=== PATIENT | female | born 1965 | race African-American/Black ===

== ENCOUNTER 2017-11-02 15:51 | Emergency (ER) | payer OTHER ==
[2017-11-02 16:03] VITALS: BP 117/77; PULSE 97; TEMP 98.5
[2017-11-02] MEDS ORDERED: DEXAMETHASONE SOD PHOSPHATE 10 MG/1 ML VIAL ONE (16:46)
[2017-11-02] MEDS ORDERED: PENICILLIN G BENZATHINE 2,400,000 UNIT/4 ML PFS ONE ×2 (16:47→16:49)
[2017-11-02] MEDS ORDERED: DEXAMETHASONE LIQUID 0.5 MG/5 ML 240 ML BULK BOTTLE PO ONE (16:50)
[2017-11-02] MEDS ORDERED: PENICILLIN G BENZATHINE 2,400,000 UNIT/4 ML PFS IM ONE (16:50)
--- NOTE | 2017-11-02 16:51 | PDOC ---
History of Present Illness - General Chief Complaint: Sore Throat Stated Complaint: PAIN/ HEAD, BACK Time Seen by Provider: 11/02/17 16:34 History Source: Patient - History of Present Illness Initial Comments: 11/02/17 16:46 This is a 52-year-old woman past medical history of diabetes and hypertension who presents emergency Department with 3 days of sore throat, raspy voice and fevers. 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 She states the children have been treated for strep throat. Patient also states she's been having a headache and feels dehydrated. Patient states she has to occasionally clear her throat and forcibly cough remove phlegm from her throat. She denies chills, chest pain, shortness of breath, abdominal pain, nausea or vomiting. 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 Past History - Past Medical History Allergies/Adverse Reactions: Allergies Allergy/AdvReac Type Severity Reaction Status Date / Time No Known Allergies Allergy Verified 11/02/17 16:02 Home Medications: Ambulatory Orders Metformin HCl [Metformin HCl ER] 1,000 mg PO DAILY 01/20/16 Azithromycin [Zithromax Tri-Otis (3 DAYS) -] 500 mg PO DAILY #3 tablet 10/22/16 Prednisone [Deltasone -] 40 mg PO DAILY #6 tablet 10/22/16 COPD: No Diabetes: Yes HTN: Yes - Suicide/Smoking/Psychosocial Hx Smoking History: Never smoked Have you smoked in the past 12 months: No Hx Alcohol Use: No Drug/Substance Use Hx: No Respiratory Specific PMHX - Complaint Specific PMHX Bronchitis: Yes Pneumonia: Yes Review of Systems - Review of Systems Is the patient limited Singaporean proficient: No Constitutional: No: Symptoms Reported HEENTM: Yes: See HPI Respiratory: No: Symptoms reported Cardiac (ROS): No: Symptoms Reported ABD/GI: No: Symptoms Reported : No: Symptoms Reported Musculoskeletal: No: Symptoms Reported Integumentary: No: Symptoms Reported Neurological: No: Symptoms reported *Physical Exam - Vital Signs Last Vital Signs Temp Pulse Resp BP Pulse Ox 98.5 F 97 H 18 117/77 96 11/02/17 15:59 11/02/17 15:59 11/02/17 15:59 11/02/17 15:59 11/02/17 15:59 - Physical Exam General Appearance: Yes: Appropriately Dressed. No: Apparent Distress HEENT: positive: TMs Normal, Pharyngeal Erythema, Tonsillar Exudate, Tonsillar Erythema Neck: positive: Trachea midline, Supple Respiratory/Chest: positive: Lungs Clear, Normal Breath Sounds. negative: Respiratory Distress, Accessory Muscle Use Cardiovascular: positive: Regular Rhythm, Regular Rate. negative: Edema, Murmur Gastrointestinal/Abdominal: positive: Normal Bowel Sounds, Soft. negative: Tender Musculoskeletal: positive: Normal Inspection. 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 She states the children have been treated for strep throat. Patient also states she's been having a headache and feels dehydrated. Patient states she has to occasionally clear her throat and forcibly cough remove phlegm from her throat. She denies chills, chest pain, shortness of breath, abdominal pain, nausea or vomiting. TMs pearly bolivar with appropriate light reflex. Evaluation of the oropharynx reveals +4 tonsils with erythema and exudate. Patient with hoarse voice. Patient has anterior cervical lymphadenopathy bilaterally. Lungs clear to auscultation bilaterally. There is no stridor. Abdomen soft nontender nondistended. Diagnosis: Pharyngitis Given multiple exposures to children that are positive for streptococcal bacteria I will treat the patient hasn't this is bacterial in nature. Patient also instructed how to treat a viral illness. *DC/Admit/Observation/Transfer Diagnosis at time of Disposition: Pharyngitis Qualifiers: Pharyngitis/tonsillitis etiology: unspecified etiology Qualified Code(s): J02.9 - Acute pharyngitis, unspecified - Discharge Dispostion Disposition: HOME Condition at time of disposition: Stable Admit: No - Referrals Referrals: Vinh Ceja MD [Primary Care Provider] - - Patient Instructions Additional Instructions: Change her toothbrush immediately. Saltwater gargles may help alleviate feeling in her throat. Take Tylenol or Motrin as needed for fevers and pain. Follow manufacturers instructions for appropriate dosage. Keep well-hydrated. Return to emergency department for difficulty swallowing, drooling, worsening fevers,'s worsening sore throat, or any other concerns. Thank you very much for choosing us to provide your emergent healthcare needs. - Post Discharge Activity
== END 2017-11-02 17:05 | disposition home or self-care (01) ==
LOC: JERFT 15:51
DX: J02.9 Acute pharyngitis, unspecified (principal); I10 Essential (primary) hypertension; E11.9 Type 2 diabetes mellitus without complications; Z79.84 Long term (current) use of oral hypoglycemic drugs
CPT/HCPCS: 99281-25

== ENCOUNTER 2018-11-04 17:33 | Inpatient (IN) | payer OTHER ==
--- NOTE | 2018-11-04 18:03 | PDOC ---
Rapid Medical Evaluation Time Seen by Provider: 11/04/18 17:59 Medical Evaluation: Allergies Allergy/AdvReac Type Severity Reaction Status Date / Time No Known Allergies Allergy Verified 11/02/17 16:02 11/04/18 18:01 I have performed a brief in-person evaluation of this patient. The patient presents with a chief complaint of: sent by PMD for admission for cellulitis Pertinent physical exam findings: right 5th digit cellulitis with lymphangitis I have ordered the following: labs The patient will proceed to the ED for further evaluation. Discharge Disposition - Diagnosis Cellulitis - Referrals - Patient Instructions - Post Discharge Activity
[2018-11-04 18:04] VITALS: BMI 35.6
[2018-11-04 19:28] LABS: BASO % 0.6 % (0-2.0); EOS % 1.8 % (0-4.5); HEMATOCRIT 40.1 % (32.4-45.2); HEMOGLOBIN 14.3 GM/dL (10.7-15.3); LYMPH % 46.2 % (8-40); MCHC 35.7 g/dl (32.0-36.0); MEAN CELL VOLUME 89.6 fl (80-96); MEAN PLT VOLUME 8.7 fl (7.5-11.1); MONO % 9.7 % (3.8-10.2); NEUT % 41.7 % (42.8-82.8); PLATELET COUNT 251 K/MM3 (134-434); RBC 4.48 M/mm3 (3.60-5.2); RDW 13.9 % (11.6-15.6); WHITE BLOOD COUNT 9.6 K/mm3 (4.0-10.0)
[2018-11-04 19:49] LABS: ANION GAP 7 MMOL/L (8-16); BLOOD UREA NITROGEN 9 mg/dL (7-18); CALCIUM 9.5 mg/dL (8.5-10.1); CHLORIDE 105 mmol/L (98-107); CO2 26 mmol/L (21-32); CREATININE 0.7 mg/dL (0.55-1.3); GLUCOSE,RANDOM 125 mg/dL (74-106); POTASSIUM 3.6 mmol/L (3.5-5.1); SODIUM 138 mmol/L (136-145)
[2018-11-04] MEDS ORDERED: diphenhydrAMINE HCL 25 MG CAPSULE (FP) PO ONE ×2 (20:58→21:12)
[2018-11-04] MEDS ORDERED: CLINDAMYCIN 600MG PREMIX IVPB 600 MG/50 ML BAG IVPB ONE ×2 (20:58→21:12)
[2018-11-04] MEDS ORDERED: IBUPROFEN 400 MG TABLET (FP) PO ONE (20:58)
--- NOTE | 2018-11-04 21:09 | PDOC ---
History of Present Illness - General Chief Complaint: Edema Stated Complaint: ROOM 12A Time Seen by Provider: 11/04/18 17:59 History Source: Patient Exam Limitations: No Limitations Past History - Past Medical History Allergies/Adverse Reactions: Allergies Allergy/AdvReac Type Severity Reaction Status Date / Time No Known Allergies Allergy Verified 11/02/17 16:02 Home Medications: Ambulatory Orders Metformin HCl [Metformin HCl ER] 1,000 mg PO DAILY 01/20/16 Azithromycin [Zithromax Tri-Otis (3 DAYS) -] 500 mg PO DAILY #3 tablet 10/22/16 predniSONE [Deltasone -] 40 mg PO DAILY #6 tablet 10/22/16 COPD: No Diabetes: Yes HTN: Yes - Immunization History Immunization Up to Date: Yes - Suicide/Smoking/Psychosocial Hx Smoking History: Never smoked Have you smoked in the past 12 months: No Hx Alcohol Use: No Drug/Substance Use Hx: No *Physical Exam - Vital Signs Last Vital Signs Temp Pulse Resp BP Pulse Ox 97.7 F 79 16 154/79 96 11/04/18 18:01 11/04/18 18:01 11/04/18 18:01 11/04/18 18:01 11/04/18 18:01 - Physical Exam General Appearance: No: Apparent Distress Extremity: positive: Other (+erythema and mild edema along lateral surface of R pinky along with streaking noted; no evidence of trauma or bite noted) Integumentary: positive: Erythema. negative: Cold, Clammy, Rash, Ecchymosis Moderate Sedation - Procedure Monitoring Vital Signs: Procedure Monitoring Vital Signs Temperature 97.7 F 11/04/18 18:01 Pulse Rate 79 11/04/18 18:01 Respiratory Rate 16 11/04/18 18:01 Blood Pressure 154/79 11/04/18 18:01 O2 Sat by Pulse Oximetry (%) 96 11/04/18 18:01 ED Treatment Course - LABORATORY CBC & Chemistry Diagram: 11/04/18 19:20 11/04/18 19:20 - ADDITIONAL ORDERS Additional order review: Laboratory Results 11/04/18 19:20 Sodium 138 Potassium 3.6 Chloride 105 Carbon Dioxide 26 Anion Gap 7 L BUN 9 Creatinine 0.7 Creat Clearance w eGFR > 60 Random Glucose 125 H Calcium 9.5 11/04/18 19:20 RBC 4.48 MCV 89.6 MCHC 35.7 RDW 13.9 MPV 8.7 Neutrophils % 41.7 L Lymphocytes % 46.2 H Monocytes % 9.7 Eosinophils % 1.8 Basophils % 0.6 Medical Decision Making - Medical Decision Making 53 y/o F hx of HTN, DM presents with mild swelling along R pinky last night and then redness with streaking today. Patient was recently stated on Keflex 2 days ago by her PCP for UTI. Otherwise, denies any trauma to site; unsure of anything may have bit her finger. Mentions site is itchy. Went to UC today to get evaluated and was sent to ED for IV abx. Denies fever, sob, cp, abd pain, n/ v PE concerning for lymphangitis Patient given Motrin, Benadryl and Clindamycin Blood cultures were sent Will admit for further care 11/04/18 21:[address] Castaneda - patient admitted for further care 11/04/18 23:02 *DC/Admit/Observation/Transfer Diagnosis at time of Disposition: Lymphangitis - Discharge Dispostion Condition at time of disposition: Good Decision to Admit order: Yes - Referrals Referrals: Vinh Ceja MD [Primary Care Provider] - - Patient Instructions - Post Discharge Activity
[2018-11-04 21:41] LABS: URINE APPEARANCE CLEAR; URINE BILIRUBIN NEGATIVE (<2.0 mg/dL); URINE COLOR STRAW; URINE GLUCOSE (UA) NEGATIVE (NEGATIVE); URINE KETONE NEGATIVE (NEGATIVE); URINE LEUK ESTERASE 2+ (NEGATIVE); URINE NITRITE NEGATIVE (NEGATIVE); URINE PROTEIN NEGATIVE (NEGATIVE); URINE UROBILINOGEN NEGATIVE mg/dL (0.2-1.0)
[2018-11-04 22:04] LABS: EPI CELLS RARE /HPF (FEW); URINE MUCUS RARE
[2018-11-05] MEDS ORDERED: diphenhydrAMINE HCL 25 MG CAPSULE (FP) PO ONE (02:35)
[2018-11-05] MEDS ORDERED: PT OWN MED DRAWER 7, Y5N ONE ×4 (06:12→16:37)
[2018-11-05] MEDS: CLINDAMYCIN 600MG PREMIX IVPB 600 MG/50 ML BAG IVPB SCH ×2 (06:44→13:20)
[2018-11-05] MEDS: INSULIN SLIDING SCALE (NOVOLOG) 1 VIAL SQ SCH ×4 (06:44→21:35)
[2018-11-05] MEDS: HEPARIN NA (PORCINE) 5,000 UNITS/ML 1ML VIAL SQ SCH ×2 (10:01→21:34)
[2018-11-05] MEDS: diphenhydrAMINE HCL 25 MG CAPSULE (FP) PO PRN ×2 (13:18→21:37)
--- NOTE | 2018-11-05 15:00 | CON.ID ---
Consult Consult Specialty:: infectious disease Referred by:: Reason for Consultation:: cellulitis of the finger with lymphangitic spread - History of Present Illness Chief Complaint: pain and swelling of the finger ansd streaking at the medial side of the arm till the axilla History of Present Illness: 53 y/o F hx of HTN, DM presents with swelling along R pinky which then lead to redness with streaking . Patient was recently on Keflex for 2 days P for UTI. Otherwise, denies any trauma to site; unsure of anything may have bit her finger. Mentions site is itchy. Went to today to get evaluated and was sent to ED for IV abx. Denies fever, sob, cp, abd pain, n/v patient was admitted and started on iv abx clinda - History Source History Provided By: Patient Limitations to Obtaining History: No Limitations - Alcohol/Substance Use Hx Alcohol Use: No - Smoking History Smoking history: Never smoked Have you smoked in the past 12 months: No Home Medications - Allergies Allergies/Adverse Reactions: Allergies Allergy/AdvReac Type Severity Reaction Status Date / Time No Known Allergies Allergy Verified 11/02/17 16:02 - Home Medications Home Medications: Ambulatory Orders Unobtainable 11/05/18 Review of Systems - Review of Systems Constitutional: reports: No Symptoms Eyes: reports: No Symptoms HENT: reports: No Symptoms Neck: reports: No Symptoms Cardiovascular: reports: No Symptoms Respiratory: reports: No Symptoms Gastrointestinal: reports: No Symptoms Genitourinary: reports: No Symptoms Musculoskeletal: reports: Muscle Pain Integumentary: reports: Erythema, Other (streaking on the arm till the axilla) Neurological: reports: No Symptoms Endocrine: reports: No Symptoms Hematology/Lymphatic: reports: No Symptoms Psychiatric: reports: No Symptoms Physical Exam Vital Signs: Vital Signs Temperature 98.9 F 11/05/18 14:12 Pulse Rate 80 11/05/18 14:12 Respiratory Rate 20 11/05/18 06:26 Blood Pressure 133/55 L 11/05/18 14:12 O2 Sat by Pulse Oximetry (%) 98 11/05/18 09:00 Constitutional: Yes: Well Nourished, Calm Eyes: Yes: Conjunctiva Clear HENT: Yes: Atraumatic, Normocephalic Neck: Yes: Supple, Trachea Midline Cardiovascular: Yes: Regular Rate and Rhythm Respiratory: Yes: Regular, CTA Bilaterally Gastrointestinal: Yes: Normal Bowel Sounds, Soft Musculoskeletal: Yes: WNL Extremities: Yes: Other (rt pinky finger cellulitis) Integumentary: Yes: Erythema, Other (streaking of the rt side of the hand) Neurological: Yes: Alert, Oriented Psychiatric: Yes: Alert, Oriented Labs: CBC, BMP 11/04/18 19:20 11/04/18 19:20 Assessment/Plan cellulitis of the finger little erythema lymphangitis pain plan will change clinda to oral abx will add unasyn monitor swelling and streaking rest as per the team
[2018-11-05] MEDS: AMPICILLIN NA/SULBACTAM NA 3 GM in SODIUM CHLORIDE 100 ML IVPB SCH ×2 (16:41→17:47)
[2018-11-05] MEDS ORDERED: INSULIN (NOVOLOG) ASPART 100 UNITS/ML 10ML VIAL ONE (16:56)
[2018-11-05] MEDS: CLINDAMYCIN HCL 150 MG CAPSULE (FP) PO SCH (17:49)
[2018-11-05] MEDS ORDERED: FLUCONAZOLE 150 MG TABLET PO ONE (20:14)
--- NOTE | 2018-11-05 20:14 | HP ---
Admitting History and Physical - Admission History of Present Illness: Pt is a 53 y/o F hx of HTN, DM presents with mild swelling along R pinky last night and then redness with streaking today. Patient was recently stated on Keflex 2 days ago by her PCP for UTI. Otherwise, denies any trauma to site; unsure of anything may have bit her finger. Mentions site is itchy. Went to today to get evaluated and was sent to ED for IV abx. Denies fever, sob, cp, abd pain, n/v - Past Medical History Cardiovascular: Yes: HTN Endocrine: Yes: Diabetes Mellitus - Smoking History Smoking history: Never smoked Have you smoked in the past 12 months: No - Alcohol/Substance Use Hx Alcohol Use: No Home Medications - Allergies Allergies/Adverse Reactions: Allergies Allergy/AdvReac Type Severity Reaction Status Date / Time No Known Allergies Allergy Verified 11/02/17 16:02 - Home Medications Home Medications: Ambulatory Orders Clindamycin [Cleocin -] 300 mg PO Q6HPO #40 capsule 11/07/18 Family Disease History - Family Disease History Family History: Unremarkable Review of Systems - Review of Systems Constitutional: reports: No Symptoms Eyes: reports: No Symptoms HENT: reports: No Symptoms Neck: reports: No Symptoms Cardiovascular: reports: No Symptoms Respiratory: reports: No Symptoms Gastrointestinal: reports: No Symptoms Physical Examination Vital Signs: Vital Signs Temperature 97.5 F L 11/05/18 19:51 Pulse Rate 79 11/05/18 19:51 Respiratory Rate 18 11/05/18 19:51 Blood Pressure 138/85 11/05/18 19:51 O2 Sat by Pulse Oximetry (%) 98 11/05/18 09:00 Constitutional: Yes: Well Nourished HENT: Yes: WNL Neck: Yes: WNL, Supple Cardiovascular: Yes: WNL, Regular Rate and Rhythm Respiratory: Yes: WNL, Regular, CTA Bilaterally Gastrointestinal: Yes: WNL, Normal Bowel Sounds, Soft Extremities: Yes: Other (Rt 5th finger w/ erythema and streaking to wrist) Labs: CBC, BMP 11/04/18 19:20 11/04/18 19:20 Problem List - Problems (1) Cellulitis Assessment/Plan: Cont IV antibx Follow blood cultures ID consult Code(s): L03.90 - CELLULITIS, UNSPECIFIED (2) Diabetes Assessment/Plan: Cont metformin Code(s): E11.9 - TYPE 2 DIABETES MELLITUS WITHOUT COMPLICATIONS (3) Lymphangitis Code(s): I89.1 - LYMPHANGITIS
[2018-11-05] MEDS ORDERED: FLUCONAZOLE 100 MG TABLET (UD) PO ONE (21:00)
[2018-11-05] MEDS: POLYETHYLENE GLYCOL 3350 119 GM BTL PO SCH (21:33)
[2018-11-06] MEDS: CLINDAMYCIN HCL 150 MG CAPSULE (FP) PO SCH ×4 (00:38→17:54)
[2018-11-06] MEDS ORDERED: PT OWN MED DRAWER 7, Y5N ONE ×4 (02:07→17:52)
[2018-11-06] MEDS: AMPICILLIN NA/SULBACTAM NA 3 GM in SODIUM CHLORIDE 100 ML IVPB SCH ×3 (02:15→17:54)
[2018-11-06] MEDS ORDERED: INSULIN (NOVOLOG) ASPART 100 UNITS/ML 10ML VIAL ONE ×2 (07:48→21:14)
[2018-11-06] MEDS: INSULIN SLIDING SCALE (NOVOLOG) 1 VIAL SQ SCH ×4 (07:51→21:58)
[2018-11-06 08:20] LABS: BASO % 0.5 % (0-2.0); EOS % 2.4 % (0-4.5); HEMATOCRIT 39.9 % (32.4-45.2); HEMOGLOBIN 13.3 GM/dL (10.7-15.3); LYMPH % 51.3 % (8-40); MCH 30.2 pg (25.7-33.7); MCHC 33.2 g/dl (32.0-36.0); MEAN CELL VOLUME 91.1 fl (80-96); MEAN PLT VOLUME 8.7 fl (7.5-11.1); MONO % 10.6 % (3.8-10.2); NEUT % 35.2 % (42.8-82.8); PLATELET COUNT 204 K/MM3 (134-434); RBC 4.38 M/mm3 (3.60-5.2); WHITE BLOOD COUNT 7.4 K/mm3 (4.0-10.0)
[2018-11-06] MEDS: POLYETHYLENE GLYCOL 3350 119 GM BTL PO SCH (09:10)
[2018-11-06] MEDS: diphenhydrAMINE HCL 25 MG CAPSULE (FP) PO PRN ×2 (09:11→20:13)
[2018-11-06] MEDS: HEPARIN NA (PORCINE) 5,000 UNITS/ML 1ML VIAL SQ SCH ×2 (09:11→21:58)
[2018-11-06 10:57] LABS: ALBUMIN 3.1 g/dl (3.4-5.0); ALK PHOS 103 U/L (45-117); ANION GAP 7 MMOL/L (8-16); BILIRUBIN,TOTAL 0.4 mg/dL (0.2-1); BLOOD UREA NITROGEN 9 mg/dL (7-18); CALCIUM 8.7 mg/dL (8.5-10.1); CHLORIDE 108 mmol/L (98-107); CO2 26 mmol/L (21-32); CREATININE 0.7 mg/dL (0.55-1.3); GLUCOSE,RANDOM 140 mg/dL (74-106); POTASSIUM 3.9 mmol/L (3.5-5.1); SGOT/AST 18 U/L (15-37); SGPT/ALT 36 U/L (13-61); SODIUM 140 mmol/L (136-145); TOT PROT 9.1 g/dl (6.4-8.2)
--- NOTE | 2018-11-06 12:15 | PN ---
Progress Note, Physician History of Present Illness: patients swelling has improved redness has improved streaking resolved patient still has some pain and sensitivity at the site - Current Medication List Current Medications: Active Medications Clindamycin HCl (Cleocin -) 300 mg PO Q6HPO [facility] Last Admin: 11/06/18 06:37 Dose: 300 mg Diphenhydramine HCl (Benadryl -) 25 mg PO Q6H PRN PRN Reason: FOR ITCHING Last Admin: 11/06/18 09:11 Dose: 25 mg Heparin Sodium (Porcine) (Heparin -) 5,000 unit SQ BID [facility] Last Admin: 11/06/18 09:11 Dose: 5,000 unit Ampicillin Sodium/Sulbactam (Sodium 3 gm/ Sodium Chloride) 100 mls @ 200 mls/ hr IVPB Q8H-IV [facility] Last Admin: 11/06/18 09:33 Dose: 200 mls/hr Insulin Aspart (Novolog Vial Sliding Scale -) 1 vial SQ ACHS [facility]; Protocol Last Admin: 11/06/18 12:03 Dose: Not Given Metformin HCl (Glucophage Xr -) 1,000 mg PO DAILY@0700 [facility] Last Admin: 11/06/18 06:37 Dose: 1,000 mg Polyethylene Glycol (Miralax (For Daily Use) -) 17 gm PO DAILY [facility] Last Admin: 11/06/18 09:10 Dose: Not Given - Objective Vital Signs: Vital Signs Temperature 97.9 F 11/06/18 05:00 Pulse Rate 75 11/06/18 05:00 Respiratory Rate 18 11/05/18 21:00 Blood Pressure 120/73 11/06/18 05:00 O2 Sat by Pulse Oximetry (%) 99 11/05/18 21:00 Constitutional: Yes: No Distress, Calm Cardiovascular: Yes: Regular Rate and Rhythm Respiratory: Yes: Regular, CTA Bilaterally Gastrointestinal: Yes: Normal Bowel Sounds, Soft Musculoskeletal: Yes: WNL Extremities: Yes: Other (little finger with erythema and swelling) Neurological: Yes: Alert, Oriented Psychiatric: Yes: Alert, Oriented Labs: CBC, BMP 11/06/18 07:30 11/06/18 07:30 Assessment/Plan cellulitis of the finger little erythema lymphangitis pain plan continue current abx rest as per the team will switch to oral tomorrow if the finger looks good monitor for worsening
[2018-11-06 15:35] VITALS: BP 140/80; PULSE 77; TEMP 98
--- NOTE | 2018-11-06 19:29 | PN ---
Progress Note, Physician History of Present Illness: No new complaints - Current Medication List Current Medications: Active Medications Clindamycin HCl (Cleocin -) 300 mg PO Q6HPO [facility] Last Admin: 11/06/18 17:54 Dose: 300 mg Diphenhydramine HCl (Benadryl -) 25 mg PO Q6H PRN PRN Reason: FOR ITCHING Last Admin: 11/06/18 09:11 Dose: 25 mg Heparin Sodium (Porcine) (Heparin -) 5,000 unit SQ BID [facility] Last Admin: 11/06/18 09:11 Dose: 5,000 unit Ampicillin Sodium/Sulbactam (Sodium 3 gm/ Sodium Chloride) 100 mls @ 200 mls/ hr IVPB Q8H-IV [facility] Last Admin: 11/06/18 17:54 Dose: 200 mls/hr Insulin Aspart (Novolog Vial Sliding Scale -) 1 vial SQ ACHS [facility]; Protocol Last Admin: 11/06/18 16:59 Dose: Not Given Metformin HCl (Glucophage Xr -) 1,000 mg PO DAILY@0700 [facility] Last Admin: 11/06/18 06:37 Dose: 1,000 mg Polyethylene Glycol (Miralax (For Daily Use) -) 17 gm PO DAILY [facility] Last Admin: 11/06/18 09:10 Dose: Not Given - Objective Vital Signs: Vital Signs Temperature 98.0 F 11/06/18 15:34 Pulse Rate 77 11/06/18 15:34 Respiratory Rate 18 11/06/18 15:34 Blood Pressure 140/80 11/06/18 15:34 O2 Sat by Pulse Oximetry (%) 99 11/05/18 21:00 Constitutional: Yes: Well Nourished Neck: Yes: WNL, Supple Cardiovascular: Yes: WNL, Regular Rate and Rhythm Respiratory: Yes: WNL, Regular, CTA Bilaterally Extremities: Yes: Other ((+) erythema Rt 5th finger) Labs: CBC, BMP 11/06/18 07:30 11/06/18 07:30 Problem List - Problems (1) Cellulitis Assessment/Plan: Cont IV antibx Possible change to PO antibxs in am Blood cultures remain negative Code(s): L03.90 - CELLULITIS, UNSPECIFIED (2) Diabetes Assessment/Plan: Cont metformin Code(s): E11.9 - TYPE 2 DIABETES MELLITUS WITHOUT COMPLICATIONS
[2018-11-07] MEDS: CLINDAMYCIN HCL 150 MG CAPSULE (FP) PO SCH ×3 (00:16→11:09)
[2018-11-07] MEDS: AMPICILLIN NA/SULBACTAM NA 3 GM in SODIUM CHLORIDE 100 ML IVPB SCH ×2 (02:49→10:18)
[2018-11-07] MEDS ORDERED: PT OWN MED DRAWER 7, Y5N ONE (06:12)
[2018-11-07] MEDS: INSULIN SLIDING SCALE (NOVOLOG) 1 VIAL SQ SCH ×2 (06:37→11:13)
[2018-11-07] MEDS: HEPARIN NA (PORCINE) 5,000 UNITS/ML 1ML VIAL SQ SCH (10:18)
[2018-11-07] MEDS: POLYETHYLENE GLYCOL 3350 119 GM BTL PO SCH (10:18)
[2018-11-07] MEDS ORDERED: INSULIN (NOVOLOG) ASPART 100 UNITS/ML 10ML VIAL ONE (11:11)
== END 2018-11-07 14:57 | disposition home or self-care (01) | DRG 603 ==
LOC: JER 17:33 → JERBED 23:03 → OBSVTOIN 11-05 01:51 → J6S 11-05 03:30
PROVIDERS: ADMIT Internal Medicine; ATTEND Internal Medicine
DX: L03.011 Cellulitis of right finger (principal); E11.9 Type 2 diabetes mellitus without complications; Z79.84 Long term (current) use of oral hypoglycemic drugs; I10 Essential (primary) hypertension
CPT/HCPCS: 36415; 80048; 80053; 81003; 81015; 82962; 83605; 85025; 87040; 87086; 99283-25; G0378; J1644

== ENCOUNTER 2019-04-09 10:46 | Emergency (ER) | payer OTHER | END 2019-04-09 12:09 | disposition home or self-care (01) | LOC: JERFT 10:46 ==

== ENCOUNTER 2019-06-05 12:40 | Emergency (ER) | payer OTHER | END 2019-06-05 14:15 | disposition home or self-care (01) | LOC: JERFT 12:40 ==

== ENCOUNTER 2019-09-19 13:57 | Emergency (ER) | payer OTHER ==
[2019-09-19 14:10] VITALS: BP 154/79; PULSE 96; TEMP 98.1; BMI 35.3
[2019-09-19] MEDS ORDERED: KETOROLAC TROMETHAMINE 60 MG/2 ML VIAL IM ONE (14:16)
--- NOTE | 2019-09-19 14:20 | PDOC ---
History of Present Illness - General Chief Complaint: Cold Symptoms Stated Complaint: LOWER BACK PAIN/HEADACHE/CONJESTED Time Seen by Provider: 09/19/19 14:09 History Source: Patient Exam Limitations: No Limitations - History of Present Illness Is this a multiple visit Asthma Patient?: No Associated Symptoms: reports: cough, headache, muscle aches. denies: chest pain /soreness, dizziness, earache, facial pain, fever/chills, lightheadedness, nasal congestion, nasal drainage, shortness of breath, sinus infection, sore throat, wheezing Past History - Travel Traveled outside of the country in the last 30 days: No Close contact w/someone who was outside of country & ill: No - Past Medical History Allergies/Adverse Reactions: Allergies Allergy/AdvReac Type Severity Reaction Status Date / Time No Known Allergies Allergy Verified 09/19/19 14:00 Home Medications: Ambulatory Orders Amlodipine Besylate 5 mg PO DAILY 06/05/19 Aspirin [ASA -] 81 mg PO DAILY 06/05/19 Cephalexin [Keflex] 500 mg PO TID #15 capsule 06/05/19 Linagliptin [Tradjenta] 5 mg PO DAILY 06/05/19 Losartan Potassium 25 mg PO DAILY 06/05/19 Metformin HCl [Glucophage] 1,000 mg PO BID 06/05/19 Mupirocin Cream [Bactroban 2% Cream -] 1 applic TP BID #1 tube 06/05/19 Amox-Tr/K Cl [Augmentin - 875Mg Tablet] 1 tab PO BID #14 tablet 09/19/19 Fluticasone Prop 0.05% Nasal [Flonase -] 1 spray NS DAILY 7 Days #1 bot Ibuprofen 600 mg PO ACDIN 7 Days #30 tablet 09/19/19 COPD: No Diabetes: Yes (NIDDM) HTN: Yes - Immunization History Immunization Up to Date: Yes - Psycho Social/Smoking Cessation Hx Smoking History: Never smoked Have you smoked in the past 12 months: No Hx Alcohol Use: No Drug/Substance Use Hx: No Respiratory Specific PMHX - Complaint Specific PMHX Hx Bronchitis: Yes Hx Pneumonia: Yes Review of Systems - Review of Systems Constitutional: No: Chills, Fever HEENTM: Yes: Nose Congestion, Other (facial pain). No: Throat Pain, Throat Swelling Respiratory: Yes: Cough. No: Shortness of Breath, Wheezing, Productive cough Cardiac (ROS): No: Chest Pain, Lightheadedness, Chest Tightness ABD/GI: No: Nausea, Vomiting Musculoskeletal: Yes: Muscle Pain. No: Muscle Weakness Neurological: Yes: Headache. No: Numbness, Tingling, Tremors, Weakness, Dizziness *Physical Exam - Vital Signs Last Vital Signs Temp Pulse Resp BP Pulse Ox 98.1 F 96 H 20 154/79 100 09/19/19 14:00 09/19/19 14:00 09/19/19 14:00 09/19/19 14:00 09/19/19 14:00 - Physical Exam General Appearance: Yes: Nourished HEENT: positive: EOMI, JACINTA, TMs Normal, Pharynx Normal, Sinus Tenderness ( frontal sinus pain) Neck: positive: Supple Respiratory/Chest: positive: Lungs Clear, Normal Breath Sounds Cardiovascular: positive: Regular Rhythm, Regular Rate, S1, S2 Gastrointestinal/Abdominal: positive: Normal Bowel Sounds, Soft Musculoskeletal: positive: Normal Inspection, CVA Tenderness Extremity: positive: Normal Capillary Refill, Normal Inspection Integumentary: positive: Normal Color 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 Patient denies any nausea vomiting blurred vision chest pain or shortness of breath. She is a non-smoker sinus tenderness on exam cxr to r/o PNA influenza and cxr neg for fx 09/19/19 14:55 Discharge - Discharge Information Problems reviewed: Yes Clinical Impression/Diagnosis: Viral syndrome Sinusitis Qualifiers: Sinusitis location: frontal Chronicity: acute Recurrence: non-recurrent Qualified Code(s): J01.10 - Acute frontal sinusitis, unspecified Condition: Stable Disposition: HOME - Additional Discharge Information Prescriptions: Amox-Tr/K Cl [Augmentin - 875Mg Tablet] 1 tab PO BID #14 tablet Fluticasone Prop 0.05% Nasal [Flonase -] 1 spray NS DAILY 7 Days #1 bot Ibuprofen 600 mg PO ACDIN 7 Days #30 tablet Prescription Drug Monitoring Program (I-STOP) results: I-STOP not reviewed - Follow up/Referral Referrals: Vinh Ceja MD [Primary Care Provider] - - Patient Discharge Instructions Patient Printed Discharge Instructions: DI for Sinusitis, DI for Viral Upper Respiratory Infection -- Adult Additional Instructions: Your flu test was negative today Your x-ray was negative for acute infection in your lungs you will be treated for sinusitis please take antibiotics as prescribed Follow-up with your primary care doctor Return to the emergency room if worsening symptoms occurs - Post Discharge Activity
[2019-09-19] MEDS ORDERED: KETOROLAC TROMETHAMINE 60 MG/2 ML VIAL ONE (14:25)
== END 2019-09-19 15:00 | disposition home or self-care (01) ==
LOC: JER 13:57 → JERFT 13:57
PROC: 3E0233Z Introduction of Anti-inflammatory into Muscle, Percutaneous Approach (ICD-10-PCS; principal; 2019-09-19)
DX: J01.10 Acute frontal sinusitis, unspecified (principal); B34.9 Viral infection, unspecified; I10 Essential (primary) hypertension; E11.9 Type 2 diabetes mellitus without complications; Z79.84 Long term (current) use of oral hypoglycemic drugs; Z79.82 Long term (current) use of aspirin
CPT/HCPCS: 71046-TC-FY; 87804; 99282-25

== ENCOUNTER 2019-11-26 04:53 | Day surgery (SDC) | payer OTHER ==
[2019-11-25 12:57] VITALS: BMI 35.3
--- NOTE | 2019-11-26 12:52 | HP ---
History & Physical Update - History History: No Change - Physical Physical: No Change - Assessment Assessment: No Change - Plan Plan: No Change (H & P done on 11/05/2019 with progress note on 11/25/2019)
--- NOTE | 2019-11-26 13:04 | OP ---
Operative Note - Note: Operative Date: 11/26/19 Pre-Operative Diagnosis: right arm mass Operation: Excision biopsy of right arm mass Findings: r/o 1 cm lymph node Post-Operative Diagnosis: Same as Pre-op Surgeon: Vance Blount Anesthesiologist/CLAIM REVIEW MEDICAL DIRECTOR: Astrid Jacobo Anesthesia: Local, MAC Specimens Removed: r/o lymph node Estimated Blood Loss (mls): 1 Operative Report Dictated: Yes
[2019-11-26] MEDS ORDERED: LIDOCAINE HCL 1%, 10 MG/ML (20ML VIAL) ONE (13:05)
[2019-11-26] MEDS ORDERED: MIDAZOLAM HCL 2 MG/2 ML SINGLE DOSE VIAL ONE (13:14)
[2019-11-26] MEDS ORDERED: BENZOIN/ALOE VERA/STORAX/TOLU 58 ML BOTTLE ONE (13:40)
[2019-11-26 14:15] VITALS: TEMP 97.8
[2019-11-26] MEDS ORDERED: ONDANSETRON 4 MG/2 ML VIAL IVPUSH PRN (15:00)
[2019-11-26] MEDS ORDERED: oxyCODONE HCL 5 MG TABLET PO PRN (15:00)
[2019-11-26] MEDS ORDERED: LACTATED RINGERS SOLUTION 1,000 ML IV SCH (15:00)
[2019-11-26 17:24] VITALS: PULSE 76
[2019-11-26 18:00] VITALS: BP 108/70
--- NOTE | 2019-11-29 09:09 | OP ---
DATE OF OPERATION: 11/26/2019 PROCEDURE: Excisional biopsy right inner arm mass. PREOPERATIVE DIAGNOSIS: Right inner arm mass, rule out abnormal lymph node. POSTOPERATIVE DIAGNOSIS: Right inner arm mass, rule out abnormal lymph node. SURGEON: Vance Blount MD ANESTHESIA: Local with sedation. FINDINGS AND PROCEDURE: This is a 54-year-old female who was referred for history of an upper respiratory tract infection 1 month prior and developed cervical axillary lymphadenopathy and appearance of a right inner arm mass. Preoperative PET CT scan was suspicious for lymphoma. On physical exam, patient has a 1-cm, moveable mass of the right arm at the upper 1/3 and palpable axillary lymph nodes. Bilateral ultrasound was performed of the mass, showed enlarged axillary lymph nodes and also an abnormal lymph node of the right inner arm, so patient was advised of the mass with a plan to perform ultrasound-guided core needle biopsy of the axillary lymph node pending, if report comes back normal lymph node of the right arm. Consent was obtained after discussing the risks, benefits, and alternatives of the procedure. Patient was brought to the operating room and placed in supine position with right arm abducted 90 degrees. Intravenous sedation was given by the anesthesia team. The operative site was prepped and draped in the usual sterile fashion. Using lidocaine 1%, local anesthesia was administered to the proposed incision site. A 1.5-cm vertical incision over the mass was made using scalpel blade No. 15 with dissection carried down to subcutaneous tissue. Further dissection using Metzenbaum scissors and combined with Bovie cautery was done until the mass, which was a lymph node was completely excised. This was sent to the pathology laboratory as specimen. The wound was closed with interrupted Polysorb 3-0 suture for the dermis and continuous Biosyn 4-0 suture for the subcuticular layer. Wound closure was reinforced with Steri-Strips and covered with sterile dressing. Patient was transferred to the ambulatory surgical unit in satisfactory condition. ESTIMATED BLOOD LOSS: About 1 mL. WOUND CLASS: Clean. Love [id number] MTDD
--- NOTE | 2019-12-03 16:43 | PATH ---
Surgical Pathology Report Patient Name: GRACIELA HARVEY [facility]. Rec. #: [id number] /Age/Gender: 1965 (Age: 54) / F Account: [id number] Location: [facility] Taken: 11/26/2019 Received: 11/26/2019 Reported: 12/03/2019 Physicians: Vance Blount M.D. Specimen(s) Received INNER ARM MASS, RIGHT Clinical History Right inner arm mass, rule out lymphoma Final Diagnosis INNER ARM MASS, RIGHT, EXCISION: EXTENSIVELY HYALINIZED LYMPH NODE WITH REACTIVE FEATURES. SEE COMMENT Comment: H&E stained section shows an extensively hyalinized lymph node in which lymphoid tissue is embedded. Follicles, some with reactive germinal centers are seen. The interfollicular areas contain small mature lymphocytes, eosinophils, histiocytes, and mature plasma cells. John-Denys cells are not identified. Immunoperoxidase studies show CD20(+) and PAX5(+) B-cell follicles in association with CD21(+), CD23(+) follicular dendritic meshworks. CD10(+), BCL2(-), BCL6(+) reactive germinal center formation is noted in the secondary B-cell follicles. T-cells are morphologically unremarkable. CD30 immunostain highlights scattered activated lymphoid cells. CD15 immunostain is positive in the granulocytes. An in-situ hybridization for EBV (ROULA) is negative. MUM1 immunostain highlights the mature plasma cell population; immunostains for kappa and lambda light chains are pending and will be reported in an addendum. Flow cytometry does not show evidence for a B-cell or a T-cell non Hodgkin lymphoma. Correlation with relevant clinical and laboratory findings is recommended. This case was sent to Dr. Javon Brown for hematopathology consultation from [facility], [place], [place] ([id number]), the diagnosis above reflects her opinion. See [facility] report for additional details. Electronically Signed Ada Naranjo M.D. Gross Description Received fresh labeled "right inner arm mass," is a 1.1 x 0.8 x 0.7 cm rebolledo, firm mass. A healthcare sales representative portion is placed in RPMI solution and sent for flow cytometry. The remainder of the specimen is entirely submitted in one cassette. /11/26/2019 saudi/11/26/2019
== END 2019-11-26 17:30 | disposition home or self-care (01) ==
LOC: JASU-SURG 04:53
PROVIDERS: ATTEND Surgery
PROC: 07B50ZX Excision of Right Axillary Lymphatic, Open Approach, Diagnostic (ICD-10-PCS; principal; 2019-11-26 13:40)
DX: R59.0 Localized enlarged lymph nodes (principal)
CPT/HCPCS: 82962; 88305-TC

== ENCOUNTER → 2020-01-03 | Day surgery (SDC) | payer OTHER ==
--- NOTE | 2020-01-10 16:58 | PATH ---
Surgical Pathology Report Patient Name: GRACIELA HARVEY [facility]. Rec. #: [id number] /Age/Gender: 1965 (Age: 54) / F Account: [id number] Location: [facility]OLOGY [facility] Taken: 01/03/2020 Received: 01/03/2020 Reported: 01/10/2020 Physicians: Vance Blount M.D. Specimen(s) Received A: LYMPH NODE, AXILLA, RIGHT B: LYMPH NODE, AXILLA, LEFT Clinical History Nonpalpable lesion Ultrasound findings: Suspicious Final Diagnosis A. LYMPH NODE, AXILLA, RIGHT, BIOPSY: FRAGMENTS OF LYMPHOID TISSUE WITH B-CELLS, T-CELLS, AND LYMPHOID FOLLICLES. NO EVIDENCE OF A LYMPHOMA. SEE COMMENT. B. LYMPH NODE, AXILLA, LEFT, BIOPSY: FRAGMENTS OF LYMPHOID TISSUE WITH B-CELLS, T-CELLS, AND LYMPHOID FOLLICLES. NO EVIDENCE OF A LYMPHOMA. SEE COMMENT. Comment: Part B, H&E stained section shows fragments of lymphoid tissue with lymphoid follicles. Paracortical expansion is noted. No John-Denys cells or variants are identified. No granulomatous changes are seen. There is no co-expression of CD5 or CD10 on the B-cells, nor a clonal plasma cell population. There is no co-expression of BCL2 on the germinal center B-cells. Scattered immunoblasts are displayed by CD30 immunostain. The above findings favor a reactive process. Clinicopathologic correlation is recommended. Submitted H&E stained slide (part A) has been reviewed, which demonstrates similar morphologic features to those observed on section from block B. See separate flow cytometry report. This case was sent to Dr. Jere Snow from [facility], [place], [place] ([id number]) the diagnosis above reflects his opinion FLOW CYTOMETRY performed and interpreted at [facility] shows the following: LYMPH NODE, RIGHT AXILLA ([id number]): INTERPRETATION: In the sample analyzed, there is no detectable clonal B-cell population or an abnormal T-cell population. See comment. PHENOTYPE: The B-cells (35% of total) appear polytypic. The T-cells (63% of total) show no matthews T-cell antigenic deletion. The CD4:CD8 ratio is 1.53:1. \\The CD13+/CD33+ granulocytes/monocytes/histiocytes comprise 1.6%. LYMPH NODE, LEFT AXILLA ([id number]): INTERPRETATION: In the sample analyzed, there is no detectable clonal B-cell population or an abnormal T-cell population. See comment. PHENOTYPE: The B-cells (24% of total) appear polytypic. The T-cells (74% of total) show no matthews T-cell antigenic deletion. The CD4:CD8 ratio is 1.5:1. The CD13+/CD33+ granulocytes/monocytes/histiocytes comprise 1.6%. See [facility] reports ([id number], [id number]) for additional details. Electronically Signed Ada Naranjo M.D. Gross Description A. Received in formalin labeled "right axilla" is a 0.9 cm in length x 0.1 cm in diameter rebolledo-pink, cylindrical portion of soft tissue. The specimen is submitted in toto in one cassette. B. Received in formalin labeled "left axilla," is a 1.1 cm in length x 0.1 cm diameter rebolledo, cylindrical portion of soft tissue. The specimen is submitted in toto in one cassette. There are 2 separately received containers of RPMI solution labeled "right axilla" and "left axilla" containing soft tissue fragments which are sent for flow cytometry. 01/03/2020 [facility]01/03/2020
== END | disposition home or self-care (01) ==
LOC: JMAMMO-SUR 10:05 → JRADUS-SUR 10:05
PROVIDERS: ATTEND Surgery
PROC: 07B63ZX Excision of Left Axillary Lymphatic, Percutaneous Approach, Diagnostic (ICD-10-PCS; principal; 2020-01-03)
PROC: 07B53ZX Excision of Right Axillary Lymphatic, Percutaneous Approach, Diagnostic (ICD-10-PCS; 2020-01-03)
DX: D36.0 Benign neoplasm of lymph nodes (principal)
CPT/HCPCS: 19083; 19084; 87899; 88305-TC; 88342-TC; A4648

== ENCOUNTER 2020-01-10 22:59 | Emergency (ER) | payer OTHER ==
[2020-01-10 23:25] VITALS: BP 161/88; PULSE 88; TEMP 98.6; BMI 35.2
--- NOTE | 2020-01-11 01:24 | PDOC ---
Attending Attestation - Resident Resident Name: SathishdcJose - ED Attending Attestation I have performed the following: I have examined & evaluated the patient, The case was reviewed & discussed with the resident, I agree w/resident's findings & plan - HPI HPI: 01/11/20 02:21 see resident hpi - Physicial Exam PE: 01/11/20 02:21 see resident exam - Medical Decision Making 01/11/20 02:22 54-year-old female with profuse diarrhea after eating questionable check and now with lower abdominal pain Plan for labs, CT scan abdomen and pelvis IV fluids, antacids and IV Tylenol Plan for reevaluation, if tolerating p.o. will plan for DC pending results
[2020-01-11] MEDS ORDERED: SODIUM CHLORIDE 0.9% 1000 ML INFUS.BAG IV ONE (01:31)
[2020-01-11] MEDS ORDERED: FAMOTIDINE 20 MG/50 ML IVPB 20 MG/50 ML MG IVPB ONE ×2 (01:31→01:39)
[2020-01-11] MEDS ORDERED: METOCLOPRAMIDE HCL INJECTION 10 MG/2 ML VIAL IVPB ONE (01:31)
[2020-01-11] MEDS ORDERED: ACETAMINOPHEN 1000 MG/100 ML VIAL (NON FORMULARY) IVPB ONE (01:31)
[2020-01-11] MEDS ORDERED: METOCLOPRAMIDE HCL INJECTION 10 MG/2 ML VIAL ONE (01:39)
[2020-01-11] MEDS ORDERED: ACETAMINOPHEN INJECTION 100 ML IVPB ONE (01:39)
[2020-01-11 02:05] LABS: BASO % 0.9 % (0-2.0); EOS % 1.2 % (0-4.5); HEMATOCRIT 38.7 % (32.4-45.2); LYMPH % 31.2 % (8-40); MCH 30.6 pg (25.7-33.7); MCHC 33.7 g/dl (32.0-36.0); MEAN CELL VOLUME 90.7 fl (80-96); MONO % 8.8 % (3.8-10.2); NEUT % 57.9 % (42.8-82.8); PLATELET COUNT 214 K/MM3 (134-434); RBC 4.26 M/mm3 (3.60-5.2); WHITE BLOOD COUNT 12.5 K/mm3 (4.0-10.0)
[2020-01-11 02:17] LABS: URINE APPEARANCE Clear; URINE BILIRUBIN Negative (NEGATIVE); URINE COLOR Yellow; URINE GLUCOSE (UA) Negative (NEGATIVE); URINE KETONE Negative (NEGATIVE); URINE LEUK ESTERASE 1+ (NEGATIVE); URINE NITRITE Negative (NEGATIVE); URINE PROTEIN Trace (NEGATIVE); URINE UROBILINOGEN 0.2 mg/dL (0.2-1.0)
[2020-01-11 02:48] LABS: ALBUMIN 3.1 g/dl (3.4-5.0); BILIRUBIN,TOTAL 0.3 mg/dL (0.2-1); BLOOD UREA NITROGEN 12.4 mg/dL (7-18); CALCIUM 8.7 mg/dL (8.5-10.1); CREATININE 0.6 mg/dL (0.55-1.3); POTASSIUM 3.6 mmol/L (3.5-5.1); TOT PROT 7.8 g/dl (6.4-8.2)
[2020-01-11 03:04] LABS: EPI CELLS 4 /HPF (0-5/HPF); URINE RBC 1 /hpf (0-4); URINE WBC 19 /hpf (0-5)
[2020-01-11 03:05] LABS: HYALINE CASTS 2 /lpf (0-8); URINE BACTERIA 3 /hpf (NEGATIVE); URINE CRYSTALS CA OXALATES /hpf; YEAST 4 (NEGATIVE)
--- NOTE | 2020-01-11 03:46 | PDOC ---
History of Present Illness - General Chief Complaint: Pain Stated Complaint: DIARRHEA,ABD/PAINS/ Time Seen by Provider: 01/11/20 01:20 History Source: Patient Exam Limitations: No Limitations - History of Present Illness Initial Comments: 01/11/20 03:41 54-year-old female hypertension and diabetes present to the ER with two days of profuse diarrhea. Patient states that one week ago she had bilateral breast biopsies and developed sweats since for three days. Since then she has felt OK until two days ago when she ate some chicken at [employer] and has had watery diarrhea since then. She states that she's had "numerous" bouts of nonbloody diarrhea. She admits to crampy, diffuse, abdominal pain as well as some nausea which started today. She denies vomiting. She denies chest pain or shortness of breath. She admits to some dysuria without hematuria. Past History - Past Medical History Allergies/Adverse Reactions: Allergies Allergy/AdvReac Type Severity Reaction Status Date / Time azithromycin Allergy Verified 01/10/20 23:17 [From Zithromax Z-Otis] z pack Allergy "whooping Uncoded 01/10/20 23:17 cough and no bladder control" Home Medications: Ambulatory Orders Amlodipine Besylate 5 mg PO DAILY 06/05/19 Aspirin [ASA -] 81 mg PO DAILY 06/05/19 Linagliptin [Tradjenta] 5 mg PO DAILY 06/05/19 Metformin HCl [Glucophage] 1,000 mg PO BID 06/05/19 Gabapentin 300 mg PO PRN PRN 11/25/19 Montelukast Sodium [Singulair] 10 mg PO HS 11/25/19 Multivitamin [One-Daily Multi-Vitamin] 1 each PO DAILY 11/25/19 Olmesartan/Hydrochlorothiazide [Olmesartan-Hctz 40-12.5 mg Tab] 1 each PO DAILY 11/25/19 Ibuprofen 1 tab PO TID PRN 7 Days #30 tablet 11/26/19 Cephalexin Monohydrate [Keflex -] 500 mg PO BID #10 capsule 01/11/20 Anemia: No Asthma: Yes ("tuoch of emphysema") Cancer: No Cardiac Disorders: No CVA: No COPD: No CHF: No Diabetes: Yes (NIDDM) GI Disorders: Yes (acid sometimes) Disorders: No HTN: Yes Hypercholesterolemia: No Liver Disease: No Seizures: No Thyroid Disease: No - Surgical History Orthopedic Surgery: Yes (left knee arthroscopy) - Immunization History Immunization Up to Date: Yes - Psycho Social/Smoking Cessation Hx Smoking History: Former smoker Have you smoked in the past 12 months: No If you are a former smoker, when did you quit?: 25yrs ago Information on smoking cessation initiated: No Hx Alcohol Use: No Drug/Substance Use Hx: No Substance Use Type: None Hx Substance Use Treatment: No Review of Systems - Review of Systems Able to Perform ROS?: Yes Comments:: 01/11/20 03:42 GENERAL/CONSTITUTIONAL: No fever or chills. No weakness. HEAD, EYES, EARS, NOSE AND THROAT: No change in vision. No ear pain or discharge. No sore throat. CARDIOVASCULAR: No chest pain, palpitations, or lightheadedness. RESPIRATORY: No cough, wheezing, shortness of breath, or hemoptysis. GASTROINTESTINAL: + for abdominal pain, nausea, vomiting, and diarrhea. No constipation. GENITOURINARY: No dysuria, frequency, hematuria, or change in urination. MUSCULOSKELETAL: No joint or muscle swelling or pain. No neck or back pain. SKIN: No rash or lesions. NEUROLOGIC: No headache, numbness, tingling, focal weakness, loss of consciousness, or change in strength/sensation. Is the patient limited Hebrew proficient: No *Physical Exam - Vital Signs Last Vital Signs Temp Pulse Resp BP Pulse Ox 98.6 F 88 18 161/88 100 01/10/20 23:11 01/10/20 23:11 01/10/20 23:11 01/10/20 23:11 01/10/20 23:11 - Physical Exam 01/11/20 03:42 GENERAL: Well developed, well nourished. Awake and alert. Mildly uncomfortable appearing. HEENT: Normocephalic, atraumatic. Hearing grossly normal. Moist mucous membranes. PERRLA, EOMI. No conjunctival pallor. Sclera are non-icteric. NECK: Supple. Full ROM. No JVD. CARDIOVASCULAR: Regular rate and rhythm. No murmurs, rubs, or gallops. PULMONARY: No evidence of respiratory distress. Lungs clear to auscultation bilaterally. No wheezing, rales, or rhonchi. ABDOMINAL: Soft. Mild tenderness diffusely. Non-distended. No rebound or guarding. GENITOURINARY: No CVA tenderness bilaterally. MUSCULOSKELETAL: Normal range of motion at all joints. No bony deformities or tenderness. EXTREMITIES: No cyanosis. No clubbing. No edema. No calf tenderness or swelling. SKIN: Warm and dry. Normal capillary refill. No rashes. No jaundice. NEUROLOGICAL: Alert, awake, appropriate. Cranial nerves 2-12 grossly intact. Normal speech. Gait is normal without ataxia. PSYCHIATRIC: Cooperative. Good eye contact. Appropriate mood and affect. ED Treatment Course - LABORATORY CBC & Chemistry Diagram: 01/11/20 01:55 01/11/20 01:59 - ADDITIONAL ORDERS Additional order review: Laboratory Results 01/11/20 01/11/20 01/11/20 02:10 01:59 01:59 Sodium 138 Potassium 3.6 Chloride 105 Carbon Dioxide 25 Anion Gap 7 L BUN 12.4 Creatinine 0.6 Est GFR (CKD-EPI)AfAm 118.09 Est GFR (CKD-EPI)NonAf 101.89 Random Glucose 199 H Lactic Acid Calcium 8.7 Total Bilirubin 0.3 AST 21 ALT 32 Alkaline Phosphatase 106 Creatine Kinase 134 Troponin I < 0.02 Total Protein 7.8 Albumin 3.1 L Lipase 146 Urine Color Yellow Urine Appearance Clear Urine pH 6.0 Ur Specific [place] 1.020 Urine Protein Trace Urine Glucose (UA) Negative Urine Ketones Negative Urine Blood 1+ H Urine Nitrite Negative Urine Bilirubin Negative Urine Urobilinogen 0.2 Ur Leukocyte Esterase 1+ H Urine WBC (Auto) 19 Urine RBC (Auto) 1 Urine Casts (Auto) 2 U Pathogenic Cast Auto None U Epithel Cells (Auto) 4 U Sm Round Cell (Auto) None Urine Crystals (Auto) Ca oxalates Urine Bacteria (Auto) 3 Urine Yeast (Auto) 4 01/11/20 01:55 Sodium Potassium Chloride Carbon Dioxide Anion Gap BUN Creatinine Est GFR (CKD-EPI)AfAm Est GFR (CKD-EPI)NonAf Random Glucose Lactic Acid 1.2 Calcium Total Bilirubin AST ALT Alkaline Phosphatase Creatine Kinase Troponin I Total Protein Albumin Lipase Urine Color Urine Appearance Urine pH Ur Specific [place] Urine Protein Urine Glucose (UA) Urine Ketones Urine Blood Urine Nitrite Urine Bilirubin Urine Urobilinogen Ur Leukocyte Esterase Urine WBC (Auto) Urine RBC (Auto) Urine Casts (Auto) U Pathogenic Cast Auto U Epithel Cells (Auto) U Sm Round Cell (Auto) Urine Crystals (Auto) Urine Bacteria (Auto) Urine Yeast (Auto) 01/11/20 01:55 RBC 4.26 MCV 90.7 MCHC 33.7 RDW 14.0 MPV 9.0 Neutrophils % 57.9 D Lymphocytes % 31.2 D Monocytes % 8.8 Eosinophils % 1.2 Basophils % 0.9 - RADIOLOGY Radiology Studies Ordered: Category Date Time Status ABDOMEN & PELVIS CT WITH CONTR [CT] Stat CT Scan 01/11/20 02:15 Ordered - Medications Given in the ED: ED Medications Discontinued Medications Generic Name Dose Route Start Last Admin Trade Name Freq PRN Reason Stop Dose Admin Acetaminophen 1,000 mg 01/11/20 01:31 01/11/20 01:57 Ofirmev Injection - IVPB 01/11/20 01:32 1,000 mg ONCE ONE Administration Famotidine/Sodium Chloride 20 mg in 50 mls @ 100 mls/hr 01/11/20 01:31 01/11/20 02:31 Pepcid 20 Mg Premixed Ivpb - IVPB 01/11/20 02:00 100 mls/hr ONCE ONE Administration Metoclopramide HCl 10 mg 01/11/20 01:31 01/11/20 01:58 Reglan Injection - IVPB 01/11/20 01:32 10 mg ONCE ONE Administration Sodium Chloride 1,000 ml 01/11/20 01:31 01/11/20 01:57 Normal Saline - IV 01/11/20 01:32 1,000 ml ONCE ONE Administration Medical Decision Making - Medical Decision Making 01/11/20 03:43 54-year-old female with a past medical history of hypertension and diabetes presents with 2 to 3 days of watery diarrhea after eating chicken at [employer]. Patient states that she has no sick contacts, no recent travel, no recent antibiotic use. Will obtain labs and CAT scan of her abdomen and pelvis. Will get Pepcid, raglan, fluids, Tylenol and reassess. 01/11/20 04:59 CTAP negative. Labs WNL. UA shows UTI in presence of dysuria. Will d/c with abx and PCP f/u. Discharge - Discharge Information Problems reviewed: Yes Clinical Impression/Diagnosis: Diarrhea Qualifiers: Diarrhea type: unspecified type Qualified Code(s): R19.7 - Diarrhea, unspecified UTI (urinary tract infection) Qualifiers: Urinary tract infection type: site unspecified Hematuria presence: without hematuria Qualified Code(s): N39.0 - Urinary tract infection, site not specified Condition: Good Disposition: HOME - Admission No - Additional Discharge Information Prescriptions: Cephalexin Monohydrate [Keflex -] 500 mg PO BID #10 capsule - Follow up/Referral - Patient Discharge Instructions Patient Printed Discharge Instructions: Viral Gastroenteritis Additional Instructions: Your ER visit is not complete until your follow up with your primary care physician. Please follow up with your primary care physician in 1-2 days. Please return to the ER if you have any signs or symptoms of chest pain, shortness of breath, uncontrollable fever, chills, nausea, vomiting, numbness, tingling, or weakness in any part of your body, changes in vision, or slurred speech. Please take your medications as prescribed. Please return to the ER if symptoms persist, worsen, or new symptoms arise. - Post Discharge Activity
--- NOTE | 2020-01-11 11:00 | EKG ---
Test Reason : Blood Pressure : / mmHG Vent. Rate : 084 BPM Atrial Rate : 084 BPM P-R Int : 160 ms QRS Dur : 106 ms QT Int : 418 ms P-R-T Axes : 040 -29 017 degrees QTc Int : 493 ms NORMAL SINUS RHYTHM ANTERIOR INFARCT (CITED ON OR BEFORE 16-NOV-2010) ABNORMAL ECG WHEN COMPARED WITH ECG OF 16-NOV-2010 10:04, NO SIGNIFICANT CHANGE WAS FOUND Confirmed by Carlos Whittington MD ([id number]) on 01/11/2020 11:00:18 AM Referred By: Confirmed By:Carlos Whittington MD
== END 2020-01-11 05:12 | disposition home or self-care (01) ==
LOC: JER 22:59
PROC: 3E033GC Introduction of Other Therapeutic Substance into Peripheral Vein, Percutaneous Approach (ICD-10-PCS; principal; 2020-01-10)
PROC: 3E033GC Introduction of Other Therapeutic Substance into Peripheral Vein, Percutaneous Approach (ICD-10-PCS; 2020-01-10)
PROC: 3E033NZ Introduction of Analgesics, Hypnotics, Sedatives into Peripheral Vein, Percutaneous Approach (ICD-10-PCS; 2020-01-10)
DX: N39.0 Urinary tract infection, site not specified (principal); R19.7 Diarrhea, unspecified; I10 Essential (primary) hypertension; E11.9 Type 2 diabetes mellitus without complications; Z79.84 Long term (current) use of oral hypoglycemic drugs; J45.909 Unspecified asthma, uncomplicated; Z87.891 Personal history of nicotine dependence; Z88.1 Allergy status to other antibiotic agents
CPT/HCPCS: 36415; 74177-TC; 80053; 81003; 82550; 83605; 83690; 84484; 85025; 87086; 93005; 93010; 99285-25; J0131; J7030; Q9967

== ENCOUNTER 2020-01-27 13:39 | Emergency (ER) | payer OTHER ==
[2020-01-27 13:43] VITALS: BP 169/78; PULSE 87; TEMP 98.6
--- NOTE | 2020-01-27 13:45 | PDOC ---
History of Present Illness - General Chief Complaint: Cold Symptoms Stated Complaint: COLD Time Seen by Provider: 01/27/20 13:40 History Source: Patient Exam Limitations: No Limitations - History of Present Illness Initial Comments: 01/27/20 13:40 cough with fevers x 4 days. other family members ill with same , + diabetes and HTN 01/27/20 13:41 Is this a multiple visit Asthma Patient?: No Timing/Duration: reports: just prior to arrival Severity: reports: mild, moderate Associated Symptoms: reports: cough, fever/chills, nasal congestion Past History - Travel Traveled outside of the country in the last 30 days: No Close contact w/someone who was outside of country & ill: No - Past Medical History Allergies/Adverse Reactions: Allergies Allergy/AdvReac Type Severity Reaction Status Date / Time azithromycin Allergy Verified 01/10/20 23:17 [From Zithromax Z-Otis] z pack Allergy "whooping Uncoded 01/10/20 23:17 cough and no bladder control" Home Medications: Ambulatory Orders Amlodipine Besylate 5 mg PO DAILY 06/05/19 Aspirin [ASA -] 81 mg PO DAILY 06/05/19 Linagliptin [Tradjenta] 5 mg PO DAILY 06/05/19 Metformin HCl [Glucophage] 1,000 mg PO BID 06/05/19 Gabapentin 300 mg PO PRN PRN 11/25/19 Montelukast Sodium [Singulair] 10 mg PO HS 11/25/19 Multivitamin [One-Daily Multi-Vitamin] 1 each PO DAILY 11/25/19 Olmesartan/Hydrochlorothiazide [Olmesartan-Hctz 40-12.5 mg Tab] 1 each PO DAILY 11/25/19 Ibuprofen 1 tab PO TID PRN 7 Days #30 tablet 11/26/19 Cephalexin Monohydrate [Keflex -] 500 mg PO BID #10 capsule 01/11/20 Acetaminophen 1,000 mg PO Q6H PRN #30 tablet 01/27/20 Acetaminophen 1,000 mg PO Q6H PRN #30 tablet 01/27/20 Albuterol Sulfate Inhaler - [Ventolin HFA Inhaler -] 1 - 2 inh PO QID #1 inhaler 01/27/20 Amox-Tr/K Cl [Augmentin 875Mg Tablet] 1 tab PO BID #20 tablet 01/27/20 Budesonide/Formeterol Fumarate [SYMBICORT 160/4.5mcg -] 1 inh PO DAILY #1 cannister 01/27/20 Doxycycline Hyclate [Vibratab -] 100 mg PO BID #14 tablet 01/27/20 Anemia: No Asthma: Yes ("tuoch of emphysema") Cancer: No Cardiac Disorders: No CVA: No COPD: No CHF: No Diabetes: Yes (NIDDM) GI Disorders: Yes (acid sometimes) Disorders: No HTN: Yes Hypercholesterolemia: No Liver Disease: No Seizures: No Thyroid Disease: No - Surgical History Orthopedic Surgery: Yes (left knee arthroscopy) - Immunization History Immunization Up to Date: Yes - Psycho Social/Smoking Cessation Hx Smoking History: Never smoked Have you smoked in the past 12 months: No If you are a former smoker, when did you quit?: 25yrs ago Hx Alcohol Use: No Drug/Substance Use Hx: No Substance Use Type: None Hx Substance Use Treatment: No Respiratory Specific PMHX - Complaint Specific PMHX Hx Bronchitis: Yes Hx Pneumonia: Yes Review of Systems - Review of Systems Able to Perform ROS?: Yes Is the patient limited Panamanian proficient: Yes Constitutional: Yes: Symptoms Reported, See HPI, Chills, Fever, Malaise HEENTM: Yes: See HPI Respiratory: Yes: Symptoms reported, See HPI, Cough, Wheezing ABD/GI: Yes: See HPI, Diarrhea All Other Systems: Reviewed and Negative *Physical Exam - Physical Exam General Appearance: Yes: Nourished, Appropriately Dressed, Apparent Distress, Mild Distress, Moderate Distress HEENT: positive: JACINTA, Normal ENT Inspection, Pharyngeal Erythema Neck: positive: Supple. negative: Tender Respiratory/Chest: positive: Rhonchi (coarse insp and exp , some clearing with cough), Wheezing. 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 Will cover with Zpack to cover bacteria- and encouraged to return for worsen symptoms/ breathing px 01/27/20 19:35 Discharge - Discharge Information Problems reviewed: No Clinical Impression/Diagnosis: Viral respiratory illness Condition: Stable Disposition: HOME - Admission No - Additional Discharge Information Prescriptions: Acetaminophen 1,000 mg PO Q6H PRN #30 tablet PRN Reason: Pain Acetaminophen 1,000 mg PO Q6H PRN #30 tablet PRN Reason: Pain Amox-Tr/K Cl [Augmentin 875Mg Tablet] 1 tab PO BID #20 tablet Budesonide/Formeterol Fumarate [SYMBICORT 160/4.5mcg -] 1 inh PO DAILY #1 cannister Albuterol Sulfate Inhaler - [Ventolin HFA Inhaler -] 1 - 2 inh PO QID #1 inhaler Doxycycline Hyclate [Vibratab -] 100 mg PO BID #14 tablet - Follow up/Referral - Patient Discharge Instructions Patient Printed Discharge Instructions: DI for Viral Upper Respiratory Infection -- Adult, [facility]-Coronavirus Instructions Additional Instructions: rest, lots of fluids- teas, soups, water, gatorade May use over the counter preparations for symptoms Tylenol ONLY, not Ibuprofen as not indicated with this [place] Virus Quarantine for next 14 days/ RTER for worsen symptoms. Augmentin 875mg every 12 hours for 7 days Doxycycline 100mg ever 12 hours for 7 days cont use of asthma medications. - Post Discharge Activity Work/Back to School Note: Back to Work
== END 2020-01-27 14:37 | disposition home or self-care (01) ==
LOC: JER 13:39
DX: B34.9 Viral infection, unspecified (principal); J06.9 Acute upper respiratory infection, unspecified
CPT/HCPCS: 71045-TC-FY; 99283-25; U0002

== ENCOUNTER 2020-04-28 11:47 | Emergency (ER) | payer OTHER ==
[2020-04-28 11:58] VITALS: TEMP 97.7; BMI 36.0
[2020-04-28] MEDS ORDERED: ACETAMINOPHEN 1000 MG/100 ML VIAL (NON FORMULARY) IVPB ONE (12:42)
[2020-04-28 12:52] LABS: BASO % 0.8 % (0-2.0); EOS % 1.9 % (0-4.5); HEMATOCRIT 39.3 % (32.4-45.2); HEMOGLOBIN 13.3 GM/dL (10.7-15.3); LYMPH % 47.3 % (8-40); MCH 30.6 pg (25.7-33.7); MCHC 33.9 g/dl (32.0-36.0); MEAN CELL VOLUME 90.2 fl (80-96); MEAN PLT VOLUME 8.9 fl (7.5-11.1); MONO % 8.4 % (3.8-10.2); NEUT % 41.6 % (42.8-82.8); PLATELET COUNT 222 K/MM3 (134-434); RBC 4.36 M/mm3 (3.60-5.2); RDW 13.9 % (11.6-15.6); WHITE BLOOD COUNT 9.5 K/mm3 (4.0-10.0)
[2020-04-28 13:13] LABS: ANISOCYTOSIS 0; MACROCYTOSIS 0; PLATELET ESTIMATE NORMAL
[2020-04-28 13:17] LABS: ALBUMIN 3.8 g/dl (3.4-5.0); ALK PHOS 97 U/L (45-117); ANION GAP 8 MMOL/L (8-16); BILIRUBIN,TOTAL 0.3 mg/dL (0.2-1); BLOOD UREA NITROGEN 9.4 mg/dL (7-18); CALCIUM 9.9 mg/dL (8.5-10.1); CHLORIDE 105 mmol/L (98-107); CO2 25 mmol/L (21-32); CREATININE 0.6 mg/dL (0.55-1.3); GLUCOSE,RANDOM 113 mg/dL (74-106); MAGNESIUM 1.9 mg/dL (1.8-2.4); POTASSIUM 3.7 mmol/L (3.5-5.1); SGOT/AST 28 U/L (15-37); SGPT/ALT 36 U/L (13-61); SODIUM 138 mmol/L (136-145); TOT PROT 9.2 g/dl (6.4-8.2)
[2020-04-28] MEDS ORDERED: ACETAMINOPHEN INJECTION 100 ML IVPB ONE (13:25)
[2020-04-28 13:33] LABS: PHOSPHOROUS 4.1 mg/dL (2.5-4.9)
[2020-04-28 13:58] VITALS: BP 122/68; PULSE 80
[2020-04-28 15:31] LABS: PH,URINE 7.5 (5.0-8.0); URINE APPEARANCE CLEAR; URINE BILIRUBIN NEGATIVE (NEGATIVE); URINE COLOR YELLOW; URINE GLUCOSE (UA) NEGATIVE (NEGATIVE); URINE KETONE NEGATIVE (NEGATIVE); URINE LEUK ESTERASE NEGATIVE (NEGATIVE); URINE NITRITE NEGATIVE (NEGATIVE); URINE PROTEIN NEGATIVE (NEGATIVE); URINE UROBILINOGEN 0.2 mg/dL (0.2-1.0)
== END 2020-04-28 14:15 | disposition home or self-care (01) ==
LOC: JER 11:47
PROC: 3E033NZ Introduction of Analgesics, Hypnotics, Sedatives into Peripheral Vein, Percutaneous Approach (ICD-10-PCS; principal; 2020-04-28)
DX: R07.89 Other chest pain (principal)
CPT/HCPCS: 36415; 80053; 81003; 82550; 82553; 83735; 84100; 84443; 84484; 85025; 93005; 93010; 99285-25; J0131

== ENCOUNTER 2021-05-29 09:18 | Emergency (ER) | payer OTHER ==
[2021-05-29 09:23] VITALS: BP 167/86; PULSE 89; TEMP 97.9; BMI 34.8
== END 2021-05-29 09:59 | disposition home or self-care (01) ==
LOC: JERFT 09:18
DX: S80.862A Insect bite (nonvenomous), left lower leg, initial encounter (principal)
CPT/HCPCS: 99281-25

== ENCOUNTER 2021-09-01 18:36 | Emergency (ER) | payer OTHER ==
[2021-09-01 18:54] VITALS: TEMP 98.6; BMI 34.3
[2021-09-01] MEDS ORDERED: SODIUM CHLORIDE 0.9% 500 ML INFUS.BAG IV ONE (19:45)
[2021-09-01 20:44] LABS: EOS % 1.5 % (0-4.5); HEMATOCRIT 39.1 % (32.4-45.2); HEMOGLOBIN 13.6 GM/dL (10.7-15.3); LYMPH % 40.7 % (8-40); MCH 31.4 pg (25.7-33.7); MCHC 34.7 g/dl (32.0-36.0); MEAN CELL VOLUME 90.4 fl (80-96); MEAN PLT VOLUME 8.6 fl (7.5-11.1); MONO % 10.7 % (3.8-10.2); NEUT % 46.1 % (42.8-82.8); PLATELET COUNT 219 10^3/uL (134-434); RBC 4.33 M/mm3 (3.60-5.2); RDW 13.4 % (11.6-15.6)
[2021-09-01 20:58] LABS: CHLORIDE 106 mmol/L (98-107); SODIUM 140 mmol/L (136-145)
[2021-09-01 21:00] LABS: ALBUMIN 3.1 g/dl (3.4-5.0); ANION GAP 8 MMOL/L (8-16); BLOOD UREA NITROGEN 7.1 mg/dL (7-18); CALCIUM 8.8 mg/dL (8.5-10.1); CO2 25 mmol/L (21-32); GLUCOSE,RANDOM 140 mg/dL (74-106)
[2021-09-01 21:03] LABS: CREATININE 0.6 mg/dL (0.55-1.3); SGPT/ALT 30 U/L (13-61)
[2021-09-01 21:04] LABS: SGOT/AST 21 U/L (15-37)
[2021-09-01 21:05] LABS: BILIRUBIN,TOTAL 0.2 mg/dL (0.2-1)
[2021-09-01 21:07] LABS: ALK PHOS 112 U/L (45-117)
[2021-09-01] MEDS ORDERED: ALBUTEROL SO4 2.5/IPRATROPIUM 0.5 INH SOL 3 ML VIAL.NEB. NEB ONE ×2 (21:45→21:47)
[2021-09-01 23:36] VITALS: BP 137/82; PULSE 100
== END 2021-09-01 22:45 | disposition home or self-care (01) ==
LOC: JER 18:36
PROC: 3E0F7GC Introduction of Other Therapeutic Substance into Respiratory Tract, Via Natural or Artificial Opening (ICD-10-PCS; principal; 2021-09-01)
DX: R05.9 Cough, unspecified (principal)
CPT/HCPCS: 36415; 71046-TC-FY; 80053; 84484; 85025; 87804; 87880; 93005; 93010; 99285-25; C9803; U0003; U0005

== ENCOUNTER 2022-03-06 16:24 | Emergency (ER) | payer OTHER ==
[2022-03-06 16:37] VITALS: BMI 34.3
[2022-03-06] MEDS ORDERED: ACETAMINOPHEN 1000 MG/100 ML BAG IVPB ONE (17:33)
[2022-03-06] MEDS ORDERED: ACETAMINOPHEN INJECTION 100 ML IVPB ONE (17:38)
[2022-03-06] MEDS ORDERED: KETOROLAC TROMETHAMINE 30 MG/1 ML VIAL IVPUSH ONE (17:57)
[2022-03-06] MEDS ORDERED: KETOROLAC TROMETHAMINE 30 MG/1 ML VIAL ONE (18:08)
[2022-03-06 18:20] LABS: VENOUS O2 SATURATION 64.4 % (70-80); VENOUS PCO2 38.8 mmHg (38-52); VENOUS PH 7.416 (7.310-7.410)
[2022-03-06 18:27] LABS: BASO % 0.6 % (0-2.0); EOS % 0.2 % (0-4.5); HEMATOCRIT 40.2 % (32.4-45.2); HEMOGLOBIN 13.9 GM/dL (10.7-15.3); LYMPH % 29.4 % (8-40); MCH 31.2 pg (25.7-33.7); MCHC 34.6 g/dl (32.0-36.0); MEAN CELL VOLUME 90.2 fl (80-96); MEAN PLT VOLUME 9.2 fl (7.5-11.1); MONO % 14.1 % (3.8-10.2); NEUT % 55.7 % (42.8-82.8); PLATELET COUNT 131 10^3/uL (134-434); RBC 4.46 M/mm3 (3.60-5.2); RDW 14.7 % (11.6-15.6); WHITE BLOOD COUNT 9.3 K/mm3 (4.0-10.0)
[2022-03-06 18:32] LABS: INR 1.14 (0.83-1.09); PROTHROMBIN TIME (PATIENT) 13.1 SEC (9.7-13.0)
[2022-03-06 18:35] LABS: ACTIVATED PTT 31.9 SECONDS (25.2-36.5)
[2022-03-06 18:44] LABS: CHLORIDE 104 mmol/L (98-107); SODIUM 135 mmol/L (136-145)
[2022-03-06 18:46] LABS: ALBUMIN 3.4 g/dl (3.4-5.0); CALCIUM 9.4 mg/dL (8.5-10.1); CO2 24 mmol/L (21-32)
[2022-03-06 18:47] LABS: BLOOD UREA NITROGEN 6.7 mg/dL (7-18); GLUCOSE,RANDOM 111 mg/dL (74-106)
[2022-03-06 18:49] LABS: CREATININE 0.7 mg/dL (0.55-1.3); SGOT/AST 92 U/L (15-37)
[2022-03-06 18:51] LABS: BILIRUBIN,TOTAL 0.4 mg/dL (0.2-1); TOT PROT 9.3 g/dl (6.4-8.2)
[2022-03-06 18:52] LABS: ALK PHOS 74 U/L (45-117)
[2022-03-06 18:58] LABS: ANION GAP 6 MMOL/L (8-16); SGPT/ALT 35 U/L (13-61)
[2022-03-06 20:24] LABS: CALCIUM 8.8 mg/dL (8.5-10.1)
[2022-03-06 20:28] LABS: CREATININE 0.6 mg/dL (0.55-1.3)
[2022-03-06 20:40] VITALS: BP 117/64; PULSE 92; TEMP 98.8
[2022-03-06] MEDS ORDERED: POTASSIUM CHLORIDE TABS 20 MEQ TABLET.ER (FP) PO ONE ×2 (20:46→21:12)
== END 2022-03-06 21:49 | disposition home or self-care (01) ==
LOC: JER 16:24
PROC: 3E0333Z Introduction of Anti-inflammatory into Peripheral Vein, Percutaneous Approach (ICD-10-PCS; principal; 2022-03-06)
PROC: 3E0333Z Introduction of Anti-inflammatory into Peripheral Vein, Percutaneous Approach (ICD-10-PCS; 2022-03-06)
DX: R50.9 Fever, unspecified (principal); R06.02 Shortness of breath; J09.X2 Influenza due to identified novel influenza A virus with other respiratory manifestations
CPT/HCPCS: 0241U-QW; 36415; 71045-TC-FY; 73502-TC-LT-FY; 80048; 80053; 82803; 83605; 84484; 85025; 85610; 85651; 85730; 86140; 87040; 87807; 93005; 93010; 99284-25; C9803-CS; U0003; U0005